=== PATIENT | female | born 1985 | race Caucasian/White ===

== ENCOUNTER → 2018-04-08 09:58 | Observation (INO) ==
[2018-04-08 08:46] LABS: Amphetamine Screen,Urine Negative ng/mL (Cutoff=1000); Barbiturate Screen,Urine Negative ng/mL (Cutoff=200); Benzodiazepines Screen,Urine Negative ng/mL (Cutoff=200); Cannabinoid Screen,Urine Negative ng/mL (Cutoff = 50); Cocaine Screen,Urine Negative ng/mL (Cutoff= 300); Opiate Screen,Urine Negative ng/mL (Cutoff=300); Phencyclidine Screen,Urine Negative ng/mL (Cutoff=25)
--- NOTE | 2018-04-08 09:06 | OB/GYN Progress Note ---
Date of Encounter: 04/08/18 Time of Encounter: 09:02 - Assessment and Plan (1) 32 weeks gestation of Current Visit: Yes Status: Acute NST reactive Discharge home with PTL and kick counts FOllow up as scheduled with Dr Mays and PRN POC per consult with Dr Ackerman (2) NST (non-stress test) reactive Current Visit: Yes Status: Acute (3) Decreased movement Current Visit: Yes Status: Acute Qualifiers: Fetus number: single or unspecified fetus Trimester: third trimester Qualified Code(s): O36.8130 - Decreased movements, third trimester, not applicable or unspecified Subjective - Subjective Principal diagnosis: Decreased movement Interval history: Ms Granger at 32 weeks and 2 days that presents with decreased movement since yesterday. States she only had 4 movements since yesterday. Uncomplicated per patient report. LLQ pain with movement. Sees Dr Mays at [facility] for care. She denies headaches, vision changes, epigastric pain, leaking of fluid, cramping, and vaginal discharge/bleeding. Antepartum ROS: no movement normal Objective - Exam FHR: auscultation normal, category 1 FHR comments: Appropriate for gestation NST reactive Baseline 145; no contractions per monitor, patient report, and palpation Auscultation: bilateral: normal Abdomen: Present: normal appearance, soft, gravid Uterus: Present: normal. Absent: firm, tenderness
== END | disposition home or self-care (01) ==
LOC: 1NENULAB
PROVIDERS: ADMIT Advanced Practice Midwife; ATTEND Advanced Practice Midwife

== ENCOUNTER 2018-05-19 17:40 | Observation (INO) ==
[2018-05-19 18:09] LABS: Bilirubin,Urine Negative (Negative); Blood,Urine Negative (Negative); Clarity,Urine Cloudy (Clear); Color,Urine Yellow (Yellow); Glucose,Urine (UA) Normal (Normal); Ketones,Urine Negative (Negative); Leukocyte Esterase,Urine Negative (Negative); Nitrite,Urine Negative (Negative); Protein,Urine Negative (Neg-Trace); Specific Gravity,Urine 1.015 (1.010-1.025); Urobilinogen,Urine Normal (Normal)
[2018-05-19 18:11] LABS: Bacteria,Urine None Seen per hpf (None-Few); Hyaline Casts,Urine None Seen per lpf (None-Few); RBC,Urine 0-3 per hpf (0-3); Squamous Epithelial Cell,Urine Moderate per lpf (None-Few); WBC,Urine 0-3 per hpf (0-3)
--- NOTE | 2018-05-19 18:26 | Discharge Summary ---
Date of Encounter: 05/19/18 Time of Encounter: 18:25 - Discharge Diagnosis (1) 37 weeks gestation of Priority: Primary Status: Acute Comments: Admitted to observation for complaint of decreased movement. (2) NST (non-stress test) reactive Priority: Secondary Status: Acute Comments: FHR 140 bpm, moderate variaibility, +15x15 accels, no decels. (3) Decreased movement Priority: Secondary Status: Acute Comments: Reactive NST noted. Qualifiers: Fetus number: single or unspecified fetus Trimester: third trimester Qualified Code(s): O36.8130 - Decreased movements, third trimester, not applicable or unspecified - Discharge Medications Home Medications: Vit #108/Iron/FA [ One Tablet] 1 each PO DAILY 04/16/18 [History] Allergies/Adverse Reactions: Allergy/AdvReac Type Severity Reaction Status Date / Time sulfamethoxazole Allergy Rash Verified 04/22/18 11:45 [From Bactrim] trimethoprim [From Bactrim] Allergy Rash Verified 04/22/18 11:45 Buspirone [From BuSpar] AdvReac Hallucinati Verified 04/22/18 11:45 ng Data Procedures and tests throughout hospitalization: Laboratory Tests 05/19/18 05/19/18 18:00 18:00 Urine Color Yellow Urine Clarity Cloudy A Urine pH 7.0 Ur Specific Robinson 1.015 Urine Protein Negative Urine Glucose (UA) Normal Urine Ketones Negative Urine Blood Negative Urine Nitrite Negative Urine Bilirubin Negative Urine Urobilinogen Normal Ur Leukocyte Esterase Negative Urine Microscopic RBC 0-3 Urine Microscopic WBC 0-3 Ur Squamous Epith Cells Moderate H Urine Bacteria None Seen Hyaline Casts None Seen Ur Culture Indicated? NO Ur Drug Screen Interp See Below Labs on day of discharge: Labs from last 24 hours 05/19/18 05/19/18 18:00 18:00 Urine Color Yellow Urine Clarity Cloudy A Urine pH 7.0 Ur Specific Robinson 1.015 Urine Protein Negative Urine Glucose (UA) Normal Urine Ketones Negative Urine Blood Negative Urine Nitrite Negative Urine Bilirubin Negative Urine Urobilinogen Normal Ur Leukocyte Esterase Negative Urine Microscopic RBC 0-3 Urine Microscopic WBC 0-3 Ur Squamous Epith Cells Moderate H Urine Bacteria None Seen Hyaline Casts None Seen Ur Culture Indicated? NO Urine Opiates Screen Pending Ur Barbiturates Screen Pending Ur Phencyclidine Scrn Pending Ur Amphetamines Screen Pending U Benzodiazepines Scrn Pending Urine Cocaine Screen Pending U Marijuana (THC) Screen Pending Ur Drug Screen Interp See Below Date of admission: 05/19/18 17:40 Discharging clinician: Indigo Salgado Anticipated date of discharge: 05/19/18 - Patient Status Disposition: Home, Self-Care Condition: Good Functional capacity at discharge: independent ambulation Overall status at discharge: patient is progressing back to baseline - Discharge Instructions Additional Instructions: LABOR AND DELIVERY DISCHARGE INSTRUCTIONS Signs and Symptoms to be Reported to your Doctor Immediately: * Sudden gush, continuous or intermittent lead of fluid from vagina (note the time of gush and color of fluid) * Onset of bright red vaginal bleeding with or without pain (if you had a vaginal exam during this visit you may notice some dark red spotting. This is normal.) * Contractions that are 5 minutes apart (from the beginning of one contraction to the beginning of the next) and last 45-60 seonds; contractions that you can no longer walk, talk or laugh through. * A change in the baby's activity. This could be an increase or decrease in activity. * Severe headache which does not go away with tylenol. * Sudden swelling in the face, hands, arms and/or legs. * Upper abdominal pain - sometimes associated with heartburn or nausea and is not relieved by Maalox, Mylanta or Tums. * Kick Counts __ One hour after a meal, lay down on one side in a quiet place. Count the number of time the baby moves during an hour. If less than 6 movements, notify your physician Diet: *Force fluids, 8 to 10 tall glasses of fluid per day - may include popsicles and jello *Limit caffeine - this includes chocolate, coffee, tea, any soft drink containing such as all sophia, Oj Yellow and Mountain Dew - Diet and Activity Activity: resume usual activities as tolerated Diet: regular diet Hospital Course [employer] Hospital course: Patient arrived with complaint of decreased movement today. She does report that she has been told she has an anterior placenta. She states she has felt the baby move only a few times today. Denies vaginal bleeding and fluid leakage. She has an appointment in the office on for routine care. Time Attestation: Total time spent providing and/or coordinating discharge services: Time Spent: Less than 30 minutes Exam - Constitutional General appearance IM: A&O X 3, pleasant, no acute distress, answers questions appropriately - Respiratory Respiratory exam: Present: CTAB - Cardiovascular Cardiovascular exam IM: Present: RRR, +S1, +S2 - GI/Abdominal GI/Abdominal exam IM: normal bowel sounds, soft - Rectal Rectal exam: deferred - External exam: normal external exam - Extremities Exam Extremities exam IM: Present: full ROM, normal capillary refill, normal inspection - Neurological Exam Neurological exam: alert, normal gait, oriented X3 - VTE Reasons for not Prescribing Prophylaxis: Treatment not Indicated - Low risk for VTE
[2018-05-19 18:39] LABS: Amphetamine Screen,Urine Negative ng/mL (Cutoff=1000); Barbiturate Screen,Urine Negative ng/mL (Cutoff=200); Benzodiazepines Screen,Urine Negative ng/mL (Cutoff=200); Cannabinoid Screen,Urine Negative ng/mL (Cutoff = 50); Cocaine Screen,Urine Negative ng/mL (Cutoff= 300); Opiate Screen,Urine Negative ng/mL (Cutoff=300); Phencyclidine Screen,Urine Negative ng/mL (Cutoff=25)
== END 2018-05-19 18:32 | disposition home or self-care (01) ==
LOC: 1NENULAB
PROVIDERS: ADMIT Registered Nurse; ATTEND Registered Nurse

== ENCOUNTER → 2019-07-14 11:21 | Observation (INO) ==
[2019-07-14 10:19] LABS: Protein/Creatinine Ratio,Urine 0.1 mg/mg (0.00-0.20)
[2019-07-14 10:25] LABS: Alanine Aminotransferase 6 Units/L (7-52); Aspartate Amino Transferase 14 Units/L (13-39); BUN/Creatinine Ratio 19 (6-26); Blood Urea Nitrogen 9 mg/dL (6-20); Lactate Dehydrogenase 172 Units/L (140-271); Uric Acid 3.1 mg/dL (2.3-7.6); eGFR For African Americans > 60 (> 60); eGFR For Non-African Americans > 60 (> 60)
[2019-07-14 10:39] LABS: Hematocrit 43.7 % (35.3-44.9); Hemoglobin 14.6 g/dL (11.5-15.4); Immature Granulocytes % 0.5 % (0-4); Lymphocytes % 20.2 %; Mean Corpuscular HGB Conc 33.4 g/dL (31.6-35.5); Mean Corpuscular Hemoglobin 29.1 pg (28.0-33.3); Mean Corpuscular Volume 87.1 fL (83.0-100.0); Mean Platelet Volume 10.4 fL (9.4-12.4); Monocytes % 5.7 %; Platelet Count 183 K/mcL (140-400); Red Blood Count 5.02 M/mcL (3.82-4.97); Red Cell Distribution Width 12.9 % (11.5-14.5); White Blood Count 8.1 K/mcL (4.3-11.1)
[2019-07-14 10:40] LABS: Basophils % 0.2 %; Eosinophils # 0.1 K/mcL (0.0-0.6); Eosinophils % 1.4 %; Lymphocytes # 1.6 K/mcL (0.6-4.6); Monocytes # 0.5 K/mcL (0.0-1.3); Neutrophils # 5.8 K/mcL (1.6-8.9)
== END | disposition home or self-care (01) ==
LOC: 1NENULAB
PROVIDERS: ADMIT Student in an Organized Health Care Education/Training Program; ATTEND Student in an Organized Health Care Education/Training Program

== ENCOUNTER → 2019-09-19 19:48 | Observation (INO) ==
[2019-09-19 18:08] LABS: Bacteria,Urine Few per hpf (None-Few); Bilirubin,Urine Negative (Negative); Blood,Urine Negative (Negative); Calcium Oxalate Crystals,Urine Present; Clarity,Urine Turbid (Clear); Color,Urine Yellow (Yellow); Glucose,Urine (UA) Normal (Normal); Ketones,Urine 10 mg/dL (Negative); Leukocyte Esterase,Urine Trace (Negative); Mucus,Urine Moderate per lpf (None-Few); Nitrite,Urine Negative (Negative); Protein,Urine 30 mg/dL (Neg-Trace); Specific Gravity,Urine 1.028 (1.010-1.025); Squamous Epithelial Cell,Urine Moderate per hpf (None-Few); Urobilinogen,Urine Normal (Normal); WBC,Urine 0-3 per hpf (0-3)
[2019-09-19 18:12] LABS: Basophils % 0.1 %; Eosinophils # 0.1 K/mcL (0.0-0.6); Eosinophils % 0.7 %; Hematocrit 40.5 % (35.3-44.9); Hemoglobin 13.4 g/dL (11.5-15.4); Immature Granulocytes % 0.5 % (0-4); Lymphocytes # 1.4 K/mcL (0.6-4.6); Mean Corpuscular HGB Conc 33.1 g/dL (31.6-35.5); Mean Corpuscular Hemoglobin 29.6 pg (28.0-33.3); Mean Corpuscular Volume 89.6 fL (83.0-100.0); Mean Platelet Volume 11.1 fL (9.4-12.4); Monocytes # 0.7 K/mcL (0.0-1.3); Monocytes % 6.6 %; Platelet Count 171 K/mcL (140-400); Red Blood Count 4.52 M/mcL (3.82-4.97); Segmented Neutrophils % 78.1 %; White Blood Count 10.3 K/mcL (4.3-11.1)
[2019-09-19 18:22] LABS: Alanine Aminotransferase 15 Units/L (7-52); Albumin 3.8 g/dL (3.5-5.7); Albumin/Globulin Ratio 1.1 (1.1-2.2); Alkaline Phosphatase 37 Units/L (34-104); Aspartate Amino Transferase 17 Units/L (13-39); BUN/Creatinine Ratio 13 (6-26); Bilirubin,Total 0.3 mg/dL (0.3-1.0); Blood Urea Nitrogen 7 mg/dL (6-20); Calcium 9.1 mg/dL (8.6-10.3); Carbon Dioxide 23 mEq/L (23-29); Chloride 106 mEq/L (98-107); Globulin 3.4 g/dL (2.4-3.5); Glucose 98 mg/dL (70-105); Osmolality,Calculated 286 (280-300); Potassium 3.4 mEq/L (3.5-5.1); Sodium 139 mEq/L (136-145); Total Protein 7.2 g/dL (6.4-8.9); eGFR For African Americans > 60 (> 60); eGFR For Non-African Americans > 60 (> 60)
[~2019-09-19 19:48] MED LIST: *HR* Promethazine 25 MG/ML VIAL IVP ONE; Metoclopramide 10 MG/2 ML VIAL IVP PRN; Ondansetron 4 MG/2 ML VIAL IVP PRN; Ringers Solution, Lactated 1,000 ML IVC ONE; Ringers Solution, Lactated 1,000 ML ONE; hydrOXYzine pamoate 25 MG CAPSULE PO PRN
== END | disposition home or self-care (01) ==
LOC: 1NENULAB
PROVIDERS: ADMIT Registered Nurse; ATTEND Registered Nurse

== ENCOUNTER → 2019-09-20 16:50 | Observation (INO) ==
[~2019-09-20 16:50] MED LIST changes: -*HR* Promethazine 25 MG/ML VIAL IVP ONE; +0.9 % Sodium Chloride 1,000 ML IVC SCH; -Metoclopramide 10 MG/2 ML VIAL IVP PRN; -Ondansetron 4 MG/2 ML VIAL IVP PRN; +Promethazine 25 MG in 0.9 % Sodium Chloride 50 ML IVPB ONE; -Ringers Solution, Lactated 1,000 ML IVC ONE; -Ringers Solution, Lactated 1,000 ML ONE; -hydrOXYzine pamoate 25 MG CAPSULE PO PRN
== END | disposition home health service (06) ==
LOC: 1NENULAB
PROVIDERS: ADMIT Registered Nurse; ATTEND Registered Nurse

== ENCOUNTER 2019-09-23 17:57 | Observation (INO) ==
[2019-09-23] MEDS: Ringers Solution, Lactated 1,000 ML IVC SCH ×2 (17:43→20:11)
[2019-09-23] MEDS: Ondansetron 4 MG/2 ML VIAL IVP PRN (17:43)
[2019-09-23 17:53] LABS: Basophils % 0.2 %; Eosinophils # 0.1 K/mcL (0.0-0.6); Eosinophils % 0.6 %; Hematocrit 42.8 % (35.3-44.9); Hemoglobin 14.1 g/dL (11.5-15.4); Immature Granulocytes % 0.5 % (0-4); Lymphocytes # 1.6 K/mcL (0.6-4.6); Lymphocytes % 15.4 %; Mean Corpuscular HGB Conc 32.9 g/dL (31.6-35.5); Mean Corpuscular Hemoglobin 29.6 pg (28.0-33.3); Mean Corpuscular Volume 89.9 fL (83.0-100.0); Mean Platelet Volume 10.8 fL (9.4-12.4); Monocytes # 0.6 K/mcL (0.0-1.3); Monocytes % 6.3 %; Neutrophils # 7.8 K/mcL (1.6-8.9); Platelet Count 179 K/mcL (140-400); Red Blood Count 4.76 M/mcL (3.82-4.97); White Blood Count 10.2 K/mcL (4.3-11.1)
[2019-09-23 18:04] LABS: Alanine Aminotransferase 14 Units/L (7-52); Aspartate Amino Transferase 14 Units/L (13-39); BUN/Creatinine Ratio 15 (6-26); Blood Urea Nitrogen 7 mg/dL (6-20); Lactate Dehydrogenase 147 Units/L (140-271); Uric Acid 2.4 mg/dL (2.3-7.6); eGFR For African Americans > 60 (> 60); eGFR For Non-African Americans > 60 (> 60)
[2019-09-23 19:20] LABS: Protein/Creatinine Ratio,Urine 0.12 mg/mg (0.00-0.20)
[2019-09-23] MEDS ORDERED: Metoclopramide 10 MG/2 ML VIAL IVP ONE (19:55)
[2019-09-23] MEDS ORDERED: hydrOXYzine pamoate 25 MG CAPSULE PO PRN (21:00)
[2019-09-24] MEDS: Ondansetron 4 MG/2 ML VIAL IVP PRN ×3 (00:25→11:55)
[2019-09-24] MEDS: Ringers Solution, Lactated 1,000 ML IVC SCH (04:05)
[2019-09-24] MEDS ORDERED: Prenatal Vit/FA 1 EACH TABLET PO SCH (09:00)
[2019-09-24 11:43] VITALS: BP 124/68
[2019-09-24 13:36] LABS: Amphetamine Screen,Urine Negative ng/mL (Cutoff=1000); Barbiturate Screen,Urine Negative ng/mL (Cutoff=200); Benzodiazepines Screen,Urine Negative ng/mL (Cutoff=200); Cannabinoid Screen,Urine Positive ng/mL (Cutoff = 50); Cocaine Screen,Urine Negative ng/mL (Cutoff= 300); Opiate Screen,Urine Negative ng/mL (Cutoff=300); Phencyclidine Screen,Urine Negative ng/mL (Cutoff=25)
== END 2019-09-24 14:00 | disposition home or self-care (01) ==
LOC: 1NENULAB → 1NENUOBS 17:57
PROVIDERS: ADMIT Registered Nurse; ATTEND Registered Nurse

== ENCOUNTER 2019-09-27 20:01 | Observation (INO) ==
[2019-09-27 20:55] LABS: Bacteria,Urine Few per hpf (None-Few); Bilirubin,Urine Negative (Negative); Blood,Urine Negative (Negative); Clarity,Urine Turbid (Clear); Color,Urine Yellow (Yellow); Glucose,Urine (UA) Normal (Normal); Hyaline Casts,Urine Few per lpf (None Seen); Ketones,Urine 10 mg/dL (Negative); Leukocyte Esterase,Urine Small (Negative); Mucus,Urine Many per lpf (None-Few); Nitrite,Urine Negative (Negative); Protein,Urine 30 mg/dL (Neg-Trace); Specific Gravity,Urine 1.022 (1.010-1.025); Squamous Epithelial Cell,Urine Moderate per hpf (None-Few); Urobilinogen,Urine Normal (Normal)
[2019-09-27] MEDS ORDERED: Prochlorperazine 10 MG/2 ML VIAL IVP PRN (21:08)
[2019-09-27] MEDS ORDERED: Ringers Solution, Lactated 1,000 ML IVC ONE (21:08)
[2019-09-27 21:18] LABS: Basophils % 0.2 %; Eosinophils # 0.1 K/mcL (0.0-0.6); Eosinophils % 0.8 %; Hematocrit 40.8 % (35.3-44.9); Hemoglobin 13.7 g/dL (11.5-15.4); Immature Granulocytes % 0.6 % (0-4); Lymphocytes # 1.6 K/mcL (0.6-4.6); Lymphocytes % 14.4 %; Mean Corpuscular HGB Conc 33.6 g/dL (31.6-35.5); Mean Corpuscular Hemoglobin 29.8 pg (28.0-33.3); Mean Corpuscular Volume 88.9 fL (83.0-100.0); Mean Platelet Volume 10.6 fL (9.4-12.4); Monocytes # 0.8 K/mcL (0.0-1.3); Monocytes % 7.5 %; Neutrophils # 8.3 K/mcL (1.6-8.9); Platelet Count 187 K/mcL (140-400); Red Blood Count 4.59 M/mcL (3.82-4.97); Red Cell Distribution Width 12.7 % (11.5-14.5); Segmented Neutrophils % 76.5 %; White Blood Count 10.8 K/mcL (4.3-11.1)
[2019-09-27 21:40] LABS: Potassium 3.8 mEq/L (3.5-5.1)
== END 2019-09-27 22:39 | disposition home or self-care (01) ==
LOC: 1NENULAB
PROVIDERS: ADMIT Advanced Practice Midwife; ATTEND Advanced Practice Midwife

== ENCOUNTER → 2020-01-09 20:39 | Observation (INO) ==
[2020-01-09 19:25] LABS: Basophils % 0.2 %; Eosinophils # 0.1 K/mcL (0.0-0.6); Eosinophils % 1.1 %; Hematocrit 35.4 % (35.3-44.9); Hemoglobin 11.5 g/dL (11.5-15.4); Immature Granulocytes % 0.6 % (0-4); Lymphocytes # 1.4 K/mcL (0.6-4.6); Lymphocytes % 17.6 %; Mean Corpuscular HGB Conc 32.5 g/dL (31.6-35.5); Mean Corpuscular Hemoglobin 28.5 pg (28.0-33.3); Mean Corpuscular Volume 87.6 fL (83.0-100.0); Mean Platelet Volume 11.4 fL (9.4-12.4); Monocytes # 0.7 K/mcL (0.0-1.3); Monocytes % 8.3 %; Neutrophils # 5.9 K/mcL (1.6-8.9); Platelet Count 144 K/mcL (140-400); Red Blood Count 4.04 M/mcL (3.82-4.97); Red Cell Distribution Width 12.5 % (11.5-14.5); Segmented Neutrophils % 72.2 %; White Blood Count 8.2 K/mcL (4.3-11.1)
[2020-01-09 19:34] LABS: Protein/Creatinine Ratio,Urine 0.12 mg/mg (0.00-0.20)
[2020-01-09 19:44] LABS: Alanine Aminotransferase 7 Units/L (7-52); Aspartate Amino Transferase 13 Units/L (13-39); BUN/Creatinine Ratio 21 (6-26); Blood Urea Nitrogen 12 mg/dL (6-20); Lactate Dehydrogenase 137 Units/L (140-271); Uric Acid 4.6 mg/dL (2.3-7.6); eGFR For African Americans > 60 (> 60); eGFR For Non-African Americans > 60 (> 60)
[~2020-01-09 20:39] MED LIST changes: -0.9 % Sodium Chloride 1,000 ML IVC SCH; +FLU Vac QV 20-21 (6Month+)/PF 0.5 ML SYRINGE IM ONE; +Ondansetron ODT 4 MG TAB.RAPDIS SL ONE; -Promethazine 25 MG in 0.9 % Sodium Chloride 50 ML IVPB ONE
== END | disposition home or self-care (01) ==
LOC: 1NENULAB
PROVIDERS: ADMIT Advanced Practice Midwife; ATTEND Advanced Practice Midwife

== ENCOUNTER 2020-01-17 05:58 | Inpatient (IN) ==
[~2020-01-17 05:58] MED LIST changes: +Azithromycin 500 MG in 0.9 % Sodium Chloride 250 ML IVPB ONE; -FLU Vac QV 20-21 (6Month+)/PF 0.5 ML SYRINGE IM ONE; +Famotidine 20 MG/2 ML VIAL IVP PRN; +Metoclopramide 10 MG/2 ML VIAL IVP PRN; +Naloxone 0.4 MG/ML INJ IVP PRN; -Ondansetron ODT 4 MG TAB.RAPDIS SL ONE
[2020-01-17] MEDS ORDERED: Ringers Solution, Lactated 1,000 ML IVC SCH (06:00)
[2020-01-17 06:12] LABS: Basophils % 0.1 %; Eosinophils # 0.1 K/mcL (0.0-0.6); Eosinophils % 0.8 %; Hematocrit 38.6 % (35.3-44.9); Hemoglobin 12.7 g/dL (11.5-15.4); Immature Granulocytes % 0.5 % (0-4); Lymphocytes # 1.3 K/mcL (0.6-4.6); Lymphocytes % 15.8 %; Mean Corpuscular HGB Conc 32.9 g/dL (31.6-35.5); Mean Corpuscular Hemoglobin 28.9 pg (28.0-33.3); Mean Corpuscular Volume 87.7 fL (83.0-100.0); Mean Platelet Volume 11.4 fL (9.4-12.4); Monocytes # 0.6 K/mcL (0.0-1.3); Monocytes % 7.4 %; Neutrophils # 6.3 K/mcL (1.6-8.9); Platelet Count 159 K/mcL (140-400); Red Cell Distribution Width 12.4 % (11.5-14.5); Segmented Neutrophils % 75.4 %; White Blood Count 8.4 K/mcL (4.3-11.1)
[2020-01-17] MEDS ORDERED: Ondansetron 4 MG/2 ML VIAL IVP PRN ×2 (06:15→15:43)
[2020-01-17] MEDS ORDERED: EPHEDrine 50 MG/ML VIAL IVP PRN (06:23)
[2020-01-17] MEDS ORDERED: Epidural Premix (fent/bupiv) 110 ML EP SCH (06:30)
[2020-01-17] MEDS ORDERED: *HR* FentaNYL (PF) 100 MCG/2 ML VIAL ONE (06:31)
[2020-01-17] MEDS ORDERED: Bupivacaine-MPF 0.25% 10 ML VIAL ONE (06:31)
[2020-01-17] MEDS ORDERED: Famotidine 20 MG/2 ML VIAL IVP STA (07:18)
[2020-01-17] MEDS ORDERED: Ondansetron 4 MG/2 ML VIAL IVP STA (07:19)
[2020-01-17] MEDS ORDERED: Ondansetron 4 MG/2 ML VIAL ONE ×2 (07:19→12:20)
[2020-01-17] MEDS ORDERED: Oxytocin 20 units/ LR 1000 mL 20 UNIT/1,000 ML BAG IVC SCH (07:30)
[2020-01-17 08:43] LABS: Amphetamine Screen,Urine Negative ng/mL (Cutoff=1000); Barbiturate Screen,Urine Negative ng/mL (Cutoff=200); Benzodiazepines Screen,Urine Negative ng/mL (Cutoff=200); Cannabinoid Screen,Urine Positive ng/mL (Cutoff = 50); Cocaine Screen,Urine Negative ng/mL (Cutoff= 300); Opiate Screen,Urine Negative ng/mL (Cutoff=300); Phencyclidine Screen,Urine Negative ng/mL (Cutoff=25)
[2020-01-17] MEDS ORDERED: Lidocaine/EPI 1:200k 2% PF 20 ML VIAL ONE (12:04)
[2020-01-17] MEDS ORDERED: *HR* Phenylephrine 10 MG/ML VIAL ONE (12:15)
[2020-01-17] MEDS ORDERED: *HR* Midazolam HCl 2 MG/2 ML VIAL ONE (12:20)
[2020-01-17] MEDS ORDERED: Ketorolac 30 MG/ML VIAL ONE (12:37)
[2020-01-17] MEDS ORDERED: Acetaminophen IV 1,000 MG/100 ML INFUS..BTL IVPB PRN (12:39)
[2020-01-17] MEDS ORDERED: *HR* HYDROmorphone PF 0.5 MG/0.5 ML SYRINGE IVP PRN (12:39)
[2020-01-17] MEDS ORDERED: *HR* Morphine Sulfate/PF 10 MG/10 ML AMPUL ONE (13:06)
[2020-01-17] MEDS ORDERED: *HR* LORazepam 2 MG/ML VIAL IVP ONE (13:26)
[2020-01-17] MEDS ORDERED: Ibuprofen 600 MG TABLET PO PRN (15:43)
[2020-01-17] MEDS ORDERED: Sennosides 8.6 MG TABLET PO PRN (15:43)
[2020-01-17] MEDS ORDERED: Simethicone 80 MG TAB.CHEW PO PRN (15:43)
[2020-01-17] MEDS ORDERED: Acetaminophen 325 MG TABLET PO PRN (15:43)
[2020-01-17] MEDS ORDERED: Metoclopramide 10 MG/2 ML VIAL IVP PRN (15:43)
[2020-01-17] MEDS: Oxytocin 20 units/ LR 1000 mL 20 UNIT/1,000 ML BAG IVC SCH (16:13)
[2020-01-17] MEDS: metroNIDAZOLE 500 MG TABLET PO SCH (16:15)
[2020-01-17] MEDS: ceFAZolin 2,000 MG in Water for inj. (sterile) 10 ML IVP SCH (16:15)
[2020-01-17] MEDS ORDERED: Famotidine 20 MG/2 ML VIAL IVP ONE (21:05)
[2020-01-17] MEDS ORDERED: Ringers Solution, Lactated 500 ML IVC ONE (21:06)
[2020-01-17] MEDS ORDERED: Ondansetron 4 MG/2 ML VIAL IVP ONE (21:06)
[2020-01-17] MEDS ORDERED: Furosemide 20 MG/2 ML VIAL IVP ONE (22:46)
[2020-01-18] MEDS: ceFAZolin 2,000 MG in Water for inj. (sterile) 10 ML IVP SCH ×2 (00:29→07:56)
[2020-01-18] MEDS: Oxytocin 20 units/ LR 1000 mL 20 UNIT/1,000 ML BAG IVC SCH ×2 (00:29→08:00)
[2020-01-18] MEDS: metroNIDAZOLE 500 MG TABLET PO SCH ×4 (00:30→22:51)
[2020-01-18 07:01] LABS: Basophils % 0.1 %; Hematocrit 33.4 % (35.3-44.9); Immature Granulocytes % 0.6 % (0-4); Lymphocytes # 1.1 K/mcL (0.6-4.6); Lymphocytes % 10.9 %; Mean Corpuscular HGB Conc 31.4 g/dL (31.6-35.5); Mean Corpuscular Hemoglobin 28.6 pg (28.0-33.3); Monocytes # 0.7 K/mcL (0.0-1.3); Monocytes % 6.6 %; Neutrophils # 8.6 K/mcL (1.6-8.9); Platelet Count 153 K/mcL (140-400); Red Blood Count 3.67 M/mcL (3.82-4.97); Red Cell Distribution Width 12.6 % (11.5-14.5); Segmented Neutrophils % 81.8 %; White Blood Count 10.5 K/mcL (4.3-11.1)
[2020-01-18 07:02] LABS: Hemoglobin 10.5 g/dL (11.5-15.4)
[2020-01-18] MEDS: Prenatal Vit/FA 1 EACH TABLET PO SCH (07:52)
[2020-01-18] MEDS ORDERED: NON-FORMULARY MEDICATION 1 EACH EACH (Prenatal Vit 108/Iron/Folic Ac [Prenatal One Tablet] PO SCH (09:00)
[2020-01-18] MEDS: *HR* OxyCODONE/APAP 5/325 TABLET PO PRN ×2 (16:01→22:51)
[2020-01-18] MEDS ORDERED: Lanolin 7 G OINT...G. TP PRN (20:06)
[2020-01-19 08:20] VITALS: BP 140/81
[2020-01-19] MEDS: Prenatal Vit/FA 1 EACH TABLET PO SCH (10:32)
== END 2020-01-19 11:00 | disposition home or self-care (01) | DRG 540 ==
LOC: 1NENULAB → 1NENUOBS 15:24
PROVIDERS: ADMIT Registered Nurse; ATTEND Registered Nurse

== ENCOUNTER 2021-10-07 14:19 | Inpatient (IN) ==
[2021-10-07 13:59] LABS: Basophils % 0.2 %; Eosinophils # 0.1 K/mcL (0.0-0.6); Eosinophils % 0.5 %; Hematocrit 37.3 % (35.3-44.9); Hemoglobin 12.4 g/dL (11.5-15.4); Immature Granulocytes % 0.5 % (0-4); Lymphocytes # 1.2 K/mcL (0.6-4.6); Lymphocytes % 10.5 %; Mean Corpuscular HGB Conc 33.2 g/dL (31.6-35.5); Mean Corpuscular Hemoglobin 28.4 pg (28.0-33.3); Mean Corpuscular Volume 85.4 fL (83.0-100.0); Mean Platelet Volume 11.3 fL (9.4-12.4); Monocytes # 0.5 K/mcL (0.0-1.3); Monocytes % 4.6 %; Neutrophils # 9.3 K/mcL (1.6-8.9); Platelet Count 154 K/mcL (140-400); Red Blood Count 4.37 M/mcL (3.82-4.97); Red Cell Distribution Width 12.9 % (11.5-14.5); Segmented Neutrophils % 83.7 %; White Blood Count 11.1 K/mcL (4.3-11.1)
[2021-10-07] MEDS: Ringers Solution, Lactated 1,000 ML IVC SCH ×2 (14:00→16:05)
[2021-10-07 14:18] LABS: Amphetamine Screen,Urine Negative ng/mL (Cutoff=1000); Barbiturate Screen,Urine Negative ng/mL (Cutoff=200); Benzodiazepines Screen,Urine Negative ng/mL (Cutoff=200); Cannabinoid Screen,Urine Positive ng/mL (Cutoff = 50); Cocaine Screen,Urine Negative ng/mL (Cutoff= 300); Opiate Screen,Urine Negative ng/mL (Cutoff=300); Phencyclidine Screen,Urine Negative ng/mL (Cutoff=25)
[~2021-10-07 14:19] MED LIST changes: +*HR* FentaNYL (PF) 100 MCG/2 ML VIAL EP ONE; +*HR* FentaNYL (PF) 100 MCG/2 ML VIAL ONE; +*HR* Nalbuphine 10 MG/ML AMPUL IV PRN; -Azithromycin 500 MG in 0.9 % Sodium Chloride 250 ML IVPB ONE; +Azithromycin 500 MG in 0.9 % Sodium Chloride 250 ML IVPB PRN; +EPHEDrine 50 MG/ML VIAL IVP PRN; +Epidural Premix (fent/bupiv) 110 ML EP SCH; +Lidocaine -MPF 2% 2 ML VIAL ONE; +Ondansetron 4 MG/2 ML VIAL IVP PRN; +Oxytocin 30 UNIT/503 ML BAG IVC SCH; +Ropivacaine/PF 0.2% 20 ML VIAL EP ONE; +Ropivacaine/PF 0.2% 20 ML VIAL ONE
[2021-10-07] MEDS ORDERED: *HR* Oxytocin 10 UNIT/ML VIAL ONE (19:31)
[2021-10-07] MEDS ORDERED: OXYTOCIN/RINGERS LACTATE 10 UNIT/166.6 ML BAG IVC ONE (19:41)
[2021-10-07] MEDS ORDERED: Oxytocin 30 UNIT/503 ML BAG IVC SCH (19:41)
[2021-10-07] MEDS ORDERED: Benzocaine/Menthol 56 GM AEROSOL SPRAY TP PRN (19:41)
[2021-10-07] MEDS ORDERED: Lanolin 7 G OINT...G. TP PRN (19:41)
[2021-10-07] MEDS ORDERED: Ondansetron ODT 4 MG TAB.RAPDIS SL PRN (19:41)
[2021-10-07] MEDS ORDERED: Measles/Mumps/Rubella Vacc 0.5 ML VIAL SQ PRN (19:41)
[2021-10-07] MEDS: Acetaminophen 325 MG TABLET PO SCH (22:09)
[2021-10-07] MEDS: Ibuprofen 600 MG TABLET PO SCH (22:09)
[2021-10-07] MEDS ORDERED: QUEtiapine Fumarate 25 MG TABLET PO SCH (22:30)
[2021-10-08] MEDS: Acetaminophen 325 MG TABLET PO SCH ×3 (06:40→17:26)
[2021-10-08] MEDS: Ibuprofen 600 MG TABLET PO SCH ×3 (06:41→17:25)
[2021-10-08] MEDS ORDERED: Prenatal Vit/FA 1 EACH TABLET PO SCH (09:00)
[2021-10-08 17:23] VITALS: BP 126/79; PULSE 69; TEMP 98; O2SAT 100
== END 2021-10-08 18:14 | disposition home or self-care (01) | DRG 560 ==
LOC: 1NENULAB → 1NENUOBS 21:08
PROVIDERS: ADMIT Registered Nurse; ATTEND Registered Nurse